=== PATIENT | male | born 1995 | race Two or more races ===

== ENCOUNTER 2021-05-30 20:10 | Emergency (ER) | payer MEDICARE, MEDICAID ==
[2021-05-30 20:23] VITALS: BP 135/70
--- NOTE | 2021-05-30 21:21 | ED Physician Documentation ---
History of Present Illness - Stated complaint Stated Complaint: ABSCESS,COUGH - Chief complaint Chief Complaint: Ext Problem - History obtained from History obtained from: Patient - Additonal information Additional information: 25yM presents to the ED requesting to sleep here overnight, stating it is cold outside. I explained to him that we are unable to accommodate him and he then asked for chapstick which was provided. no other complaints. Review of Systems Ten Systems: 10 systems reviewed and negative PD PAST MEDICAL HISTORY - Allergies Allergies/Adverse Reactions: Allergies Allergy/AdvReac Type Severity Reaction Status Date / Time No Known Drug Allergies Allergy Verified 05/30/21 20:23 PD ED PE NORMAL - Vitals Vital signs reviewed: Yes - General General: Alert and oriented X 3, No acute distress, Well developed/nourished - HEENT HEENT: Atraumatic, PERRL, EOMI - Neck Neck: Supple, no meningeal sign - Derm Derm: Normal color, Warm and dry, No rash - Extremities Extremities: No deformity - Neuro Neuro: Alert and oriented X 3, No motor deficit, No sensory deficit - Psych Psych: Normal mood, Normal affect Results - Vitals Vitals: Vital Signs - 24 hr 05/30/21 20:17 Temperature 36.6 C Heart Rate 80 Respiratory 18 Rate Blood Pressure 135/70 H O2 Saturation 97 Oxygen O2 Source Room air PD MEDICAL DECISION MAKING - ED course ED course: 25yM presents requesting chapstick which was provided. plan to f/u with pmd. referred to [facility]. Departure - Departure Disposition: 01 Home, Self Care Clinical Impression: Encounter for medical screening examination, Chapped lips Condition: Good Instructions: ED Screening Exam Medical Nonurgent Comments: You were seen in the emergency department for chapped lips. Please follow up with your primary doctor. Return to the ED for any new or worsening symptoms or other concerns.
== END 2021-05-30 21:24 | disposition home or self-care (01) ==
LOC: ED 20:10
DX: L98.8 Other specified disorders of the skin and subcutaneous tissue (principal)
CPT/HCPCS: 99281